=== PATIENT | female | born 1970 | race Caucasian/White ===

== ENCOUNTER 2017-05-30 16:31 | Observation (INO) | payer BC ==
[~2017-05-30] VITALS: Ht 172.7 cm; Wt 146.6 kg
[~2017-05-30 16:31] MED LIST: BACTRIM,SEPT1 TABLET PO; KEFLEX500 MG PO; ULTRAM50 MG PO
[2017-05-30 18:37] LABS: HEMATOCRIT 45.6 % (36.0-46.0); MCH 30.1 PG (29.0-34.0); MCHC 34.4 G/DL (30.0-36.0); MCV 87.5 FL (83-99); MEAN PLAT.VOLUME 10.4 uM^3 (9.5-12.4); PLATELET COUNT 346 K/uL (156-360); RBC DIS.WIDTH-CV 12.9 % (11.8-14.6); RBC DIS.WIDTH-SD 41.5 % (39-53); RED BLOOD COUNT 5.21 M/uL (3.80-5.20); WHITE BLOOD COUNT 9.1 K/uL (4.1-10.2)
[2017-05-30 18:43] LABS: CHLORIDE 98 mEq/L (99-109); POTASSIUM 4.1 mEq/L (3.7-5.4); SODIUM 136 mEq/L (136-147)
[2017-05-30 18:44] LABS: GLUCOSE 112 mg/dL (70-99)
[2017-05-30 18:46] LABS: ANION GAP 11 MEQ/L (2-14)
[2017-05-30 18:48] LABS: GFR ESTIMATE (CALCULATED) > 59 mL/min/
[2017-05-30 18:49] LABS: UREA NITROGEN (BUN) 21 mg/dL (9-23)
[2017-05-30 18:56] LABS: TROP-I INTERPRETATION NEGATIVE; TROPONIN-I < 0.01 ng/mL (0.0-0.30)
[2017-05-30 20:37] LABS: D-DIMER ELISA < 150.00 ng/mLDDU (<230)
[2017-05-30 22:28] LABS: TROP-I INTERPRETATION NEGATIVE; TROPONIN-I < 0.01 ng/mL (0.0-0.30)
[2017-05-31 02:30] VITALS: BP 168/101
[2017-05-31 06:07] LABS: HEMATOCRIT 41.4 % (36.0-46.0); MCH 28.6 PG (29.0-34.0); MCHC 32.9 G/DL (30.0-36.0); MEAN PLAT.VOLUME 10.5 uM^3 (9.5-12.4); PLATELET COUNT 300 K/uL (156-360); RBC DIS.WIDTH-CV 12.8 % (11.8-14.6); RBC DIS.WIDTH-SD 40.4 % (39-53); RED BLOOD COUNT 4.76 M/uL (3.80-5.20); WHITE BLOOD COUNT 7.4 K/uL (4.1-10.2)
[2017-05-31 06:27] LABS: ALKALINE PHOSPHATASE 53 IU/L (3-129); ANION GAP 7 MEQ/L (2-14); CHLORIDE 98 MEQ/L (99-109); GFR ESTIMATE (CALCULATED) > 59 mL/min/; GLUCOSE 111 mg/dL (70-99); POTASSIUM 4.1 MEQ/L (3.7-5.4); SAMPLE HEMOLYSIS CHECK 0; SAMPLE ICTERIC CHECK 0; SAMPLE LIPEMIA CHECK 0; SODIUM 136 MEQ/L (136-147); TOTAL BILIRUBIN 0.5 MG/DL (0.0-1.0); UREA NITROGEN (BUN) 20 mg/dL (9-23)
[2017-05-31 06:36] LABS: TROP-I INTERPRETATION NEGATIVE; TROPONIN-I < 0.01 ng/mL (0.0-0.30)
[2017-05-31 07:11] VITALS: BP 107/58
[2017-05-31 10:40] LABS: TROP-I INTERPRETATION NEGATIVE; TROPONIN-I < 0.01 ng/mL (0.0-0.30)
[2017-05-31 12:00] VITALS: BP 134/66
[2017-05-31] MEDS ORDERED: LISINOPRIL-HCT1 EACH PO (12:49)
== END 2017-05-31 13:25 | disposition home or self-care (01) ==
LOC: EME 16:31 → RME 16:31 → EDOF 05-31 00:34 → ENRESERV 05-31 00:35 → 5WEST 05-31 02:21
PROVIDERS: Internal Medicine; Physician Assistant
DX: R07.89 Other chest pain (principal); R06.09 Other forms of dyspnea; I10 Essential (primary) hypertension; R73.03 Prediabetes; E78.5 Hyperlipidemia, unspecified; E66.01 Morbid (severe) obesity due to excess calories; R07.9 Chest pain, unspecified; Z68.43 Body mass index [BMI] 50.0-59.9, adult; Z88.6 Allergy status to analgesic agent; Z88.5 Allergy status to narcotic agent; Z88.8 Allergy status to other drugs, medicaments and biological substances; Z82.49 Family history of ischemic heart disease and other diseases of the circulatory system; Z82.0 Family history of epilepsy and other diseases of the nervous system
CPT/HCPCS: 71020; 80048 91; 80053; 84443; 84484; 85027; 85379; 93005; 93306; 99281; 99285; G0378